=== PATIENT | female | born 1975 | race Caucasian/White ===

== ENCOUNTER 2019-03-10 02:02 | Emergency (ER) | payer MEDICARE, OTHER ==
[~2019-03-10] VITALS: Ht 163.8 cm; Wt 85.4 kg
[~2019-03-10 02:02] MED LIST: CEPH-443 PO; IBUP-1542 PO; SULF1TAB31 PO
[2019-03-10 02:06] VITALS: BP 154/87; PULSE 104; RESP 18; Ht 163.8 cm; Wt 85.4 kg
[2019-03-10] MEDS ORDERED: IBUPROFEN 600 MG TAB PO ONE (02:30)
[2019-03-10] MEDS ORDERED: CEFTRIAXONE 1 GM INJ IM ONE (02:30)
== END 2019-03-10 02:50 | disposition home or self-care (01) ==
LOC: FTE 02:02
DX: L02.413 Cutaneous abscess of right upper limb (principal)
CPT/HCPCS: 96372; 99284; J0696